=== PATIENT | female | born 1975 | race Caucasian/White ===

== ENCOUNTER 2017-03-04 16:09 | Emergency (ER) | payer OTHER ==
--- NOTE | 2017-03-04 17:49 | PHYS DOC ---
Past History Past Medical History: Fibromyalgia Past Surgical History: Other Alcohol Use: None Drug Use: None Adult General Chief Complaint Chief Complaint: VAGINAL BLEEDING HPI HPI This 41-year-old lady is 8 para 4 A 3 presents 11 weeks and some vaginal bleeding.. She states that she had a sonogram last 3 days ago but in the past 24 hours has been bleeding And spotting a significant amount. Review of Systems Review of Systems Constitutional: Denies fever or chills [] Eyes: Denies change in visual acuity, redness, or eye pain [] HENT: Denies nasal congestion or sore throat [] Respiratory: Denies cough or shortness of breath [] Cardiovascular: No additional information not addressed in HPI [] GI: Denies abdominal pain, nausea, vomiting, bloody stools or diarrhea [] : Denies dysuria or hematuria [] Musculoskeletal: Denies back pain or joint pain [] Integument: Denies rash or skin lesions [] Neurologic: Denies headache, focal weakness or sensory changes [] Endocrine: Denies polyuria or polydipsia [] Physical Exam Physical Exam Constitutional: Well developed, well nourished, no acute distress, non-toxic appearance. [] HENT: Normocephalic, atraumatic, bilateral external ears normal, oropharynx moist, no oral exudates, nose normal. [] Eyes: PERRLA, EOMI, conjunctiva normal, no discharge. [] Neck: Normal range of motion, no tenderness, supple, no stridor. [] Cardiovascular:Heart rate regular rhythm, no murmur [] Lungs & Thorax: Bilateral breath sounds clear to auscultation [] Abdomen: Bowel sounds normal, soft, no tenderness, no masses, no pulsatile masses. [] Skin: Warm, dry, no erythema, no rash. [] Back: No tenderness, no CVA tenderness. [] Extremities: No tenderness, no cyanosis, no clubbing, ROM intact, no edema. [] Neurologic: Alert and oriented X 3, normal motor function, normal sensory function, no focal deficits noted. [] Psychologic: Affect normal, judgement normal, mood normal. [] Pelvic examination reveals that there is a mild to moderate amount of blood in the vaginal vault the cervix is closed there is no adnexal tenderness and no cervical motion tenderness Current Patient Data Vital Signs Vital Signs Date Time Temp Pulse Resp B/P (MAP) Pulse Ox O2 Delivery O2 Flow Rate FiO2 03/04/17 16:15 98.9 94 22 96 Room Air EKG EKG [] Radiology/Procedures Radiology/Procedures Patient a small amount of subchorionic blood viable 11 week [] Impressions: First trimester vaginal bleeding Course & Med Decision Making Course & Med Decision Making Pertinent Labs and Imaging studies reviewed. (See chart for details) Patient was given morphine 4 mg Zofran 4 mg IV Patient is reassured and instructed to rest and follow-up with her [facility] doctor [] Dragon Disclaimer Dragon Disclaimer This chart was dictated in whole or in part using Voice Recognition software in a busy, high-work load, and often noisy Emergency Department environment. It may contain unintended and wholly unrecognized errors or omissions. Departure Departure: Referrals: EMEKA CABRERA MD (PCP) [place] MD Mar 04, 2017 17:49
--- NOTE | 2017-03-04 18:08 | RAD ---
Early OB ultrasound History: Vaginal bleeding beginning today. Comparison: None. Technique: Transabdominal imaging was performed to evaluate optimally the uterine fundus. Endovaginal imaging was performed to evaluate optimally the lower uterine segment and to increase sensitivity for detection of intrauterine . Findings: Transabdominal imaging: Uterus measures 15.3 cm in length. Single intrauterine is identified with a gestational sac and embryo seen. Embryonic heart motion is 150 bpm. Left ovary measures 1.9 x 1.6 x 2.2 cm and is unremarkable. Right ovary measures 2.5 x 2.1 x 2.8 cm and is unremarkable. Both ovaries are without evidence of torsion. Endovaginal imaging: Nabothian cysts are present. Cervix is closed. Cervical length is 4.81 cm. Minimal fluid is seen in the endocervical canal. Combining transabdominal and endovaginal imaging, mean crown-rump length is 4.36 cm corresponding to 11 weeks 1 day. Estimated date of delivery by ultrasound measurements September 22, 2017. There is evidence of a small subchorionic hemorrhage. Right ovary measures 2.1 x 2.5 x 2.8 cm and demonstrates a a few follicles. Left ovary is not seen with endovaginal imaging. Impression: 1. Single live intrauterine . Average ultrasound age is 11 weeks 1 day. Estimated date of delivery is September 22, 2017. 2. Small subchorionic hemorrhage. 3. Minimal fluid in the endocervical canal. Electronically signed by: Conrad De Leon MD (03/04/2017 6:05 PM)
[2017-03-04] MEDS ORDERED: ONDANSETRON PF 4 MG/2 ML VIAL. IV ONE (18:15)
[2017-03-04] MEDS ORDERED: MORPHINE SULFATE 4 MG/ML DISP.SYRIN. IV ONE (18:15)
[2017-03-04 18:16] LABS: BASO % 0 % (0-3); EOS % 0 % (0-3); HEMATOCRIT 37.8 % (36.0-47.0); HEMOGLOBIN 12.9 g/dL (12.0-15.5); LYMPH # 2.2 x10^3/uL (1.0-4.8); LYMPH % 18 % (24-48); MEAN CORPUSCULAR HEMOGLOBIN 32 pg (25-35); MEAN CORPUSCULAR HGB CONC 34 g/dL (31-37); MEAN CORPUSCULAR VOLUME 93 fL (79-100); MONO # 0.7 x10^3/uL (0.0-1.1); MONO % 6 % (0-9); NEUT # 9.2 x10^3uL (1.8-7.7); NEUT % 76 % (31-73); PLATELET COUNT 226 x10^3/uL (140-400); RED BLOOD COUNT 4.06 x10^6/uL (3.50-5.40); RED CELL DISTRIBUTION WIDTH 13.1 % (11.5-14.5); WHITE BLOOD COUNT 12.2 x10^3/uL (4.0-11.0)
[2017-03-04 18:21] LABS: CALCIUM 8.5 mg/dL (8.5-10.1); CREATININE 0.7 mg/dL (0.6-1.0); GFR 92.2; POTASSIUM 3.3 mmol/L (3.5-5.1)
[2017-03-04 19:30] VITALS: BP 128/76
== END 2017-03-04 19:38 | disposition home or self-care (01) ==
LOC: ER 16:09
DX: O46.91 Antepartum hemorrhage, unspecified, first trimester (principal); M79.7 Fibromyalgia; Z3A.11 11 weeks gestation of pregnancy
CPT/HCPCS: 36415; 76801; 76817; 80048; 85027; 86850; 86900; 86901; 96374; 96375; 99285; J2270; J2405